=== PATIENT | female | born 1955 | race Caucasian/White ===

== ENCOUNTER 2017-06-04 17:06 | Emergency (ER) | payer MEDICARE, MEDICAID ==
[2017-06-04 17:20] VITALS: BP 203/88
[2017-06-04] MEDS ORDERED: Levalbuterol HCl 1.25 MG/0.5 ML Neb NEB ONE ×2 (17:40→21:15)
--- NOTE | 2017-06-04 17:58 | EDM.PDOC ---
ED HPI GENERAL MEDICAL PROBLEM - General Chief Complaint: Cardiovascular Problem Stated Complaint: SOB Time Seen by Provider: 06/04/17 17:28 Source of Information: Reports: Patient History Limitations: Reports: No Limitations - History of Present Illness INITIAL COMMENTS - FREE TEXT/NARRATIVE: Patient is 62-year-old female who presents ED with cold and flulike symptoms since Saturday. Patient states she wants to walk in clinic and had a chest x- ray obtained revealing pneumonia. Influenza test was negative. She was started on the Z-Avtar as completed this course and does not feel any better. States she feels worse that she initially started. States with any Activity she gets winded. She does have a history of asthma COPD. She utilizes and inhalers and also no treatments while at home. She is not coughing up any sputum. She requires O2 at nighttime. Patient denies any chest pain, dizziness, palpitations , or syncopal episodes. She reports a poor appetite with generalized malaise. Denies any PND or orthopnea. - Related Data Allergies Allergy/AdvReac Type Severity Reaction Status Date / Time metronidazole Allergy Other Verified 11/26/15 14:17 sulfamethoxazole Allergy Other Verified 11/26/15 14:17 trimethoprim Allergy Other Verified 11/26/15 14:17 Home Meds: Home Meds Albuterol [Ventolin HFA] 8 gm INH Q6H PRN 11/26/15 [History] Budesonide/Formoterol [Symbicort 160-4.5 MCG] 0 gm INH BID 11/26/15 [History] Hydrocodone/Acetaminophen [Hydrocodon-Acetaminophen 5-325] 1 tab PO TID PRN [History] Levothyroxine 125 mcg PO ACBREAKFAST 11/26/15 [History] Montelukast [Singulair] 10 mg PO BEDTIME 11/26/15 [History] metFORMIN HCl [Metformin HCl] 1,000 mg PO BID 11/26/15 [History] Amoxicillin/Potassium Clav [Augmentin Xr 1,000-62.5 Tab] 2 each PO BID #28 tab.er.12h 06/04/17 [Rx] Azithromycin 250 mg PO DAILY 06/04/17 [History] Benzonatate [Tessalon Perle] 100 mg PO BID PRN #20 capsule 06/04/17 [Rx] Dulaglutide [Trulicity] 60 units INJECT BEDTIME 06/04/17 [History] Past Medical History HEENT History: Reports: Hard of Hearing Cardiovascular History: Reports: High Cholesterol, Hypertension Respiratory History: Reports: Asthma, COPD, Sleep Apnea Gastrointestinal History: Reports: GERD Musculoskeletal History: Reports: Back Pain, Chronic, Osteoarthritis Other Musculoskeletal History: knee pain Psychiatric History: Reports: Depression Endocrine/Metabolic History: Reports: Diabetes, Type II, Hypothyroidism, Obesity /BMI 30+ - Infectious Disease History Infectious Disease History: Reports: Herpes - Past Surgical History Musculoskeletal Surgical History: Reports: Other (See Below) Social & Family History - Family History Family Medical History: Noncontributory - Tobacco Use Smoking Status *Q: Never Smoker Second Hand Smoke Exposure: No - Caffeine Use Caffeine Use: Reports: Soda, Tea Other Caffeine Use: 1-2 cans daily-coke - Recreational Drug Use Recreational Drug Use: No - Living Situation & Occupation Living situation: Reports: Single, Alone Occupation: Disabled ED ROS GENERAL - Review of Systems Review Of Systems: See Below Constitutional: Reports: Malaise, Decreased Appetite. Denies: Fever, Chills HEENT: Reports: No Symptoms Respiratory: Reports: Shortness of Breath, Cough. Denies: Sputum, Hemoptysis Cardiovascular: Reports: Dyspnea on Exertion. Denies: Chest Pain, Lightheadedness, Palpitations, Syncope GI/Abdominal: Reports: No Symptoms : Reports: No Symptoms Musculoskeletal: Reports: No Symptoms Skin: Reports: No Symptoms Neurological: Reports: No Symptoms Psychiatric: Reports: No Symptoms ED EXAM, GENERAL - Physical Exam Exam: See Below Exam Limited By: No Limitations General Appearance: Alert, WD/WN, Mild Distress Ears: Hearing Grossly Normal Nose: Normal Inspection Throat/Mouth: Normal Voice, No Airway Compromise Neck: Normal Inspection, Supple Respiratory/Chest: No Accessory Muscle Use, Chest Non-Tender, Respiratory Distress, Rhonchi, Wheezing Cardiovascular: Normal Peripheral Pulses, No Murmur, Tachycardia Peripheral Pulses: 3+: Radial (L), Radial (R) GI/Abdominal: Normal Bowel Sounds, Soft, Non-Tender Extremities: Non-Tender, No Pedal Edema, Normal Capillary Refill Neurological: Alert, Oriented, CN II-XII Intact, Normal Cognition, No Motor/ Sensory Deficits Psychiatric: Normal Affect, Normal Mood Skin Exam: Warm, Dry, Intact, Normal Color, No Rash Course - Vital Signs Last Recorded V/S: Last Vital Signs Temp 96.9 F 06/04/17 17:18 Pulse 89 06/04/17 17:18 Resp 19 06/04/17 17:18 BP 203/88 H 06/04/17 17:18 Pulse Ox 95 06/04/17 21:49 - Orders/Labs/Meds Labs: Laboratory Tests 06/04/17 06/04/17 06/04/17 Range/Units 17:56 17:56 17:56 WBC 9.86 (3.98-10.04) K/mm3 RBC 5.11 (3.98-5.22) M/mm3 Hgb 14.4 (11.2-15.7) gm/L Hct 44.8 (34.1-44.9) % MCV 87.7 (79.4-94.8) fl MCH 28.2 (25.6-32.2) pg MCHC 32.1 L (32.2-35.5) g/dl RDW Std Deviation 45.6 (36.4-46.3) fL Plt Count 286 (182-369) K/mm3 MPV 9.8 (9.4-12.3) fl Neutrophils % (Manual) 89 H (40-60) % Band Neutrophils % 0 (0-10) % Lymphocytes % (Manual) 11 L (20-40) % Atypical Lymphs % 0 % Monocytes % (Manual) 0 L (2-10) % Eosinophils % (Manual) 0 L (0.7-5.8) % Basophils % (Manual) 0 L (0.1-1.2) Platelet Estimate Adequate RBC Morph Comment Normal Sodium 138 (136-145) mEq/L Potassium 5.1 (3.5-5.1) mEq/L Chloride 100 (98-107) mEq/L Carbon Dioxide 30 (21-32) mEq/L Anion Gap 13.1 (5-15) BUN 15 (7-18) mg/dL Creatinine 0.9 (0.55-1.02) mg/dL Est Cr Clr Drug Dosing 48.91 mL/min Estimated GFR (MDRD) > 60 (>60) mL/min BUN/Creatinine Ratio 16.7 (14-18) Glucose 251 H (80-115) mg/dL Calcium 8.8 (8.5-10.1) mg/dL Total Bilirubin 0.4 (0.2-1.0) mg/dL AST 39 H (15-37) U/L ALT 36 (14-59) U/L Alkaline Phosphatase 124 H (46-116) U/L Troponin I < 0.017 (0.00-0.056) ng/mL C-Reactive Protein 3.5 H* (<1.0) mg/dL NT-Pro-B Natriuret Pep 102 (0-125) pg/mL Total Protein 7.4 (6.4-8.2) g/dl Albumin 3.6 (3.4-5.0) g/dl Globulin 3.8 gm/dL Albumin/Globulin Ratio 1.0 (1-2) Meds: Medications Discontinued Medications Generic Name Dose Route Start Last Admin Trade Name Freq PRN Reason Stop Dose Admin Amoxicillin/Clavulanate Potassium 2 tab 06/04/17 20:52 06/04/17 21:11 Augmentin 875 Mg/125 Mg PO 06/04/17 20:53 2 tab ONETIME ONE Administration Benzonatate 200 mg 06/04/17 20:50 06/04/17 21:11 Tessalon Perles PO 06/04/17 20:51 200 mg ONETIME ONE Administration Guaifenesin 1,200 mg 06/04/17 20:45 06/04/17 21:11 Mucinex PO 06/04/17 20:46 1,200 mg ONETIME ONE Administration Sodium Chloride 100 mls @ 60 mls/hr 06/04/17 19:30 06/04/17 19:43 Normal Saline IV 60 mls/hr ASDIRECTED JEREMY Administration Iopamidol 50 ml 06/04/17 19:24 06/04/17 19:43 Isovue-370 (76%) IVPUSH 06/04/17 19:25 36 ml ONETIME ONE Administration Iopamidol 100 ml 06/04/17 19:24 06/04/17 19:43 Isovue-370 (76%) IVPUSH 06/04/17 19:25 100 ml ONETIME ONE Administration Levalbuterol HCl 1.25 mg 06/04/17 17:40 06/04/17 17:56 Xopenex NEB 06/04/17 17:41 1.25 mg ONETIME ONE Administration Levalbuterol HCl 1.25 mg 06/04/17 21:15 06/04/17 21:48 Xopenex NEB 06/04/17 21:16 Not Given ONETIME ONE Levalbuterol HCl Confirm 06/04/17 21:52 06/04/17 21:48 Xopenex Administered 06/04/17 21:53 1.25 mg Dose Administration 1.25 mg .ROUTE .[facility] - Re-Assessments/Exams Free Text/Narrative Re-Assessment/Exam: Chest x-ray two-view, CBC, chem 14, pro-BMP, troponin, CRP, and EKG. Patient had expiratory wheezing with rhonchi present both lobes. Ordered Xopenex 1.25 mg neb given 1. Will obtain records from recent chest x-ray conducted this past weekend. X-ray of the chest obtain a [facility] dated June 01, 2017 impression: Hazy infiltrate in the left lower lobe. Findings can be seen with developing pneumonitis. No pleural effusions. Prominent heart size. Degenerative changes thoracic spine. In addition she was tested for influenza which came back negative. Patient is on O2 via nasal cannula satting at 95%. Blood pressure is quite elevated with admission to the ED. This is due to improper blood pressure cuff sizing. The blood pressure was 180/85 heart rate 96, SPO2 93%. This is appropriate for patient's range she is has been started on losartan.. 06/04/17 18:[address] Lane with concerns for pneumonia to the right middle lobe. Suggested CT chest. This has been ordered. 1914 EKG: Sinus rhythm rate of [address] changes. Labs reviewed: CBC did not reveal any concerning findings. Sodium 138, potassium 5.1, creatinine 0.9, glucose 251, troponin less than 0.017, CRP 3.5, is proBNP is 3.5. CT of the chest is pending. CT of the chest impression: Printable densities as noted above most likely representing pneumonia. Less than optimal evaluation for PE but no findings of pulmonary emboli are seen within the main segmental branches. Reassessment, patient states wheezing and cough have improved with the above therapies. I have ordered Tessalon Perles 200mg PO, Augmentin 875mg x2, and mucinex. Will discharge patient home with instructions as documented. No oral predisone ordered. BS 251, patient has uncontrolled diabetes. Departure - Departure Time of Disposition: 20:55 Disposition: Home, Self-Care 01 Condition: Good Clinical Impression: Pneumonia Qualifiers: Pneumonia type: due to unspecified organism Laterality: bilateral Lung location : unspecified part of lung Qualified Code(s): J18.9 - Pneumonia, unspecified organism Prescriptions: Amoxicillin/Potassium Clav [Augmentin Xr 1,000-62.5 Tab] 2 each PO BID #28 tab.er.12h Benzonatate [Tessalon Perle] 100 mg PO BID PRN #20 capsule PRN Reason: Cough Instructions: Shortness of Breath, Adult, [id number], Community-Acquired Pneumonia, Adult, [id number] Referrals: Fred Adhikari MD [Primary Care Provider] - Forms: ED Department Discharge Additional Instructions: Take Tessalon Perles 100 mg 3 times a day as needed for cough. Take Mucinex 600 mg twice a day. Augmentin 2000 mg twice a day for 7 days. Take a over-the- counter probiotic. Push the fluids. Ensure adequate rest. Continue taking your Symbicort inhaler as prescribed. Continue taking the albuterol neb treatments every 4 hours as needed for wheezing and cough. See you Primary care provider the end of this week for reevaluation to ensure resolution. Return to the ED if you develop any new or worsening symptoms.
[2017-06-04] MEDS ORDERED: Iopamidol 755 MG/ML 50 ML Bottle IVPUSH ONE (19:24)
[2017-06-04] MEDS ORDERED: Iopamidol 755 Mg/ML 100 ML Bottle IVPUSH ONE (19:24)
[2017-06-04] MEDS ORDERED: Sodium Chloride 0.9% 100 ML IV SCH (19:30)
--- NOTE | 2017-06-04 20:10 | CT ---
CT chest Technique: Multiple axial sections through the chest were obtained. Intravenous contrast was utilized. Study has been performed as a pulmonary angiogram protocol. Findings: Patient body habitus causes some diminished details of the pulmonary arteries. No filling defects are seen within the main or within the segmental branches but smaller subsegmental pulmonary emboli could be missed. Small portion of the upper abdominal structures are normal. Mild coronary artery calcification is seen. Atherosclerotic calcification noted within the thoracic aorta. Several pretracheal lymph nodes are seen which are within normal limits. No axillary adenopathy is seen. Mild areas of atelectasis believed to be present within the lower lungs. More focal parenchymal density noted within the right upper lung most likely due to pneumonia. Lesser parenchymal density seen within the left lung base possibly due to additional pneumonia. Bone window settings shows scattered degenerative change within the spine. Other incidental findings as noted above. Impression: 1. Parenchymal densities as noted above most likely representing pneumonia. 2. Less than optimal evaluation for pulmonary emboli but no findings of pulmonary emboli are seen within the main or segmental branches. 3. Mild areas of atelectasis seen within both lung bases. Diagnostic code #3
[2017-06-04] MEDS ORDERED: guaiFENesin 600 MG Tab.ER PO ONE (20:45)
[2017-06-04] MEDS ORDERED: Benzonatate 100 MG Cap PO ONE (20:50)
[2017-06-04] MEDS ORDERED: Amoxicillin/Clavulanate K 875-125 MG Tab PO ONE (20:52)
[2017-06-04] MEDS ORDERED: Levalbuterol HCl 1.25 MG/3 ML Neb ONE (21:52)
--- NOTE | 2017-06-05 07:37 | CR ---
Chest: Two views of the chest were obtained. Comparison: Study compared to subsequent chest CT performed on the same day as well as older chest x-ray of 12/05/14. Patchy areas of presumed pneumonia seen on subsequent chest CT are poorly identified on current chest x-ray. Heart size and mediastinum are normal. Bony structures are unremarkable for the patient's age. Impression: 1. Nothing acute is seen on two-view chest x-ray. Subsequent parenchymal densities seen within the lungs felt compatible with pneumonia are not seen on current chest x-ray. Diagnostic code #2
== END 2017-06-04 22:16 | disposition home or self-care (01) ==
LOC: JD.ED 17:06 → SUPCPDRO 17:06 → JD.ED 22:16
DX: J18.9 Pneumonia, unspecified organism (principal); J44.9 Chronic obstructive pulmonary disease, unspecified; E11.9 Type 2 diabetes mellitus without complications; I10 Essential (primary) hypertension; K21.9 Gastro-esophageal reflux disease without esophagitis; E03.9 Hypothyroidism, unspecified; F32.9 Major depressive disorder, single episode, unspecified; E78.00 Pure hypercholesterolemia, unspecified; Z79.84 Long term (current) use of oral hypoglycemic drugs; Z79.899 Other long term (current) drug therapy; Z88.2 Allergy status to sulfonamides; Z88.8 Allergy status to other drugs, medicaments and biological substances
CPT/HCPCS: 36415; 71046; 71275; 80053; 83880; 84484; 85025; 86140; 93005; 94640; 99285; A9270; J7030; J7612; Q9967; 99284

== ENCOUNTER 2021-02-10 16:33 | Emergency (ER) | payer MEDICARE, MEDICAID ==
[2021-02-10 17:13] VITALS: BP 171/57; PULSE 71
[2021-02-10] MEDS ORDERED: Sodium Chloride 0.9% 10 ML Syringe FLUSH PRN (17:20)
[2021-02-10 18:27] LABS: CORONAVIRUS COVID-19 NAA POSITIVE (NEGATIVE)
[2021-02-10] MEDS ORDERED: diphenhydrAMINE 50 MG/ML SDV IVPUSH PRN (19:32)
[2021-02-10] MEDS ORDERED: Famotidine 20 MG/2 ML SDV IVPUSH PRN (19:32)
[2021-02-10] MEDS ORDERED: EPINEPHrine 1 MG/ML SDV IM PRN (19:32)
[2021-02-10] MEDS ORDERED: methylPREDNISolone Sodium Succinate 125 MG/2 ML SDV IVPUSH PRN (19:32)
[2021-02-10] MEDS ORDERED: Sodium Chloride 0.9% 10 ML Syringe FLUSH SCH (19:45)
--- NOTE | 2021-02-10 20:02 | EDM.PDOC ---
ED HPI GENERAL MEDICAL PROBLEM - General Chief Complaint: Respiratory Problem Stated Complaint: COVID+ WEAK COUGH BODYACHES Time Seen by Provider: 02/10/21 17:12 Source of Information: Reports: Patient History Limitations: Reports: No Limitations - History of Present Illness INITIAL COMMENTS - FREE TEXT/NARRATIVE: The patient presents with a cough, shortness of breath, fatigue and diarrhea. This has been going on for a few days. She is concerned the has COVID. She did not get immunized. She has COPD and asthma and is on oxygen. She has not been having to use more oxygen. She has a history of hypertension and high cholesterol. She does not smoke. Onset: Gradual Duration: Day(s): Severity: Moderate Improves with: Reports: None Worsens with: Reports: None Associated Symptoms: Reports: Cough, Fever/Chills, Shortness of Breath. Denies: Chest Pain, Headaches, Nausea/Vomiting - Related Data Allergies Allergy/AdvReac Type Severity Reaction Status Date / Time metronidazole Allergy Other Verified 02/10/21 17:13 sulfamethoxazole Allergy Other Verified 02/10/21 17:13 trimethoprim Allergy Other Verified 02/10/21 17:13 Home Meds: Home Meds Albuterol [Ventolin HFA] 8 gm INH Q6H PRN 11/26/15 [History] Budesonide/Formoterol [Symbicort 160-4.5 MCG] 0 gm INH BID 11/26/15 [History] Hydrocodone/Acetaminophen [HYDROcodone-Acetaminophen 5-325 MG] 1 tab PO TID PRN 11/26/15 [History] Levothyroxine 125 mcg PO ACBREAKFAST 11/26/15 [History] Montelukast [Singulair] 10 mg PO BEDTIME 11/26/15 [History] metFORMIN HCl [Metformin HCl] 1,000 mg PO BID 11/26/15 [History] Amoxicillin/Potassium Clav [Augmentin Xr 1,000-62.5 Tab] 2 each PO BID #28 tab.er.12h 06/04/17 [Rx] Azithromycin 250 mg PO DAILY 06/04/17 [History] Benzonatate [Tessalon Perle] 100 mg PO BID PRN #20 capsule 06/04/17 [Rx] Dulaglutide [Trulicity] 60 units INJECT BEDTIME 06/04/17 [History] dexAMETHasone [Dexamethasone] 6 mg PO DAILY #12 tab 02/10/21 [Rx] Past Medical History HEENT History: Reports: Hard of Hearing Cardiovascular History: Reports: High Cholesterol, Hypertension Respiratory History: Reports: Asthma, COPD, Sleep Apnea Gastrointestinal History: Reports: GERD Musculoskeletal History: Reports: Back Pain, Chronic, Osteoarthritis Other Musculoskeletal History: knee pain Psychiatric History: Reports: Depression Endocrine/Metabolic History: Reports: Diabetes, Type II, Hypothyroidism, Obesity/BMI 30+ - Infectious Disease History Infectious Disease History: Reports: Herpes - Past Surgical History HEENT Surgical History: Reports: Tonsillectomy Musculoskeletal Surgical History: Reports: Other (See Below) Social & Family History - Family History Family Medical History: No Pertinent Family History - Tobacco Use Tobacco Use Status *Q: Never Tobacco User Second Hand Smoke Exposure: No - Caffeine Use Caffeine Use: Reports: Soda Other Caffeine Use: 1-2 cans daily-coke - Recreational Drug Use Recreational Drug Use: No - Living Situation & Occupation Living situation: Reports: Single, Alone Occupation: Disabled ED ROS GENERAL - Review of Systems Review Of Systems: See Below Constitutional: Reports: Fever, Chills, Malaise, Weakness, Fatigue HEENT: Reports: No Symptoms Respiratory: Reports: Shortness of Breath, Cough Cardiovascular: Reports: No Symptoms Endocrine: Reports: No Symptoms GI/Abdominal: Reports: No Symptoms : Reports: No Symptoms Musculoskeletal: Reports: No Symptoms ED EXAM, GENERAL - Physical Exam Exam: See Below Exam Limited By: No Limitations General Appearance: Alert, No Apparent Distress Ears: Normal External Exam Nose: Normal Inspection Head: Atraumatic, Normocephalic Neck: Normal Inspection Respiratory/Chest: No Respiratory Distress, Decreased Breath Sounds Cardiovascular: Regular Rate, Rhythm, No Edema, No Murmur GI/Abdominal: Soft, Non-Tender, No Organomegaly, No Mass Back Exam: Normal Inspection Extremities: Normal Inspection #1 Interpretation EKG Date: 02/10/21 Time: 18:06 Rhythm: NSR Rate (Beats/Min): 67 Crane: Normal P-Wave: Present QRS: Normal ST-T: Normal QT: Normal Course - Vital Signs Last Recorded V/S: Last Vital Signs Temp 97.1 F 02/10/21 17:12 Pulse 71 02/10/21 17:12 Resp 20 02/10/21 17:12 BP 171/57 H 02/10/21 17:12 Pulse Ox 100 02/10/21 17:12 - Orders/Labs/Meds Orders: Active Orders 24 hr Category Date Time Status Cardiac Monitoring [RC] . DIRECTED Care 02/10/21 17:20 Active EKG Documentation Completion [RC] STAT Care 02/10/21 17:21 Active Peripheral IV Care [RC] . DIRECTED Care 02/10/21 17:21 Active Vital Signs [RC] Q15M Care 02/10/21 19:33 Active Chest 1V Frontal [CR] Stat Exams 02/10/21 17:22 Taken EPINEPHrine [Adrenalin] Med 02/10/21 19:32 Active 0.3 mg IM ASDIRECTED PRN Famotidine [Pepcid] Med 02/10/21 19:32 Active 20 mg IVPUSH ASDIRECTED PRN Sodium Chloride 0.9% [Saline Flush] Med 02/10/21 17:20 Active 10 ml FLUSH ASDIRECTED PRN Sodium Chloride 0.9% [Saline Flush] Med 02/10/21 19:45 Active 30 ml FLUSH ASDIRECTED diphenhydrAMINE [Benadryl] Med 02/10/21 19:32 Active 50 mg IVPUSH ASDIRECTED PRN methylPREDNISolone Sod Succ [Solu-MEDROL] Med 02/10/21 19:32 Active 125 mg IVPUSH ASDIRECTED PRN Peripheral IV Insertion Adult [OM.PC] Stat Oth 02/10/21 17:20 Ordered Medication Orders Diphenhydramine HCl (Diphenhydramine 50 Mg/Ml Sdv) 50 mg IVPUSH ASDIRECTED PRN PRN Reason: hypersensitivity reaction Epinephrine HCl (Epinephrine 1 Mg/Ml Sdv) 0.3 mg IM ASDIRECTED PRN PRN Reason: hypersensitivity reaction Famotidine (Famotidine 20 Mg/2 Ml Sdv) 20 mg IVPUSH ASDIRECTED PRN PRN Reason: hypersensitivity reaction Methylprednisolone Sodium Succinate (Methylprednisolone Sodium Succinate 125 Mg/2 Ml Sdv) 125 mg IVPUSH ASDIRECTED PRN PRN Reason: hypersensitivity reaction Sodium Chloride (Sodium Chloride 0.9% 10 Ml Syringe) 10 ml FLUSH ASDIRECTED PRN PRN Reason: Keep Vein Open Last Admin: 02/10/21 17:55 Dose: 10 ml Documented by: ANGELIQUE Sodium Chloride (Sodium Chloride 0.9% 10 Ml Syringe) 30 ml FLUSH ASDIRECTED JEREMY Labs: Laboratory Tests 02/10/21 02/10/21 02/10/21 Range/Units 17:14 17:25 17:25 WBC 5.22 (3.98-10.04) K/mm3 RBC 3.72 L (3.98-5.22) M/mm3 Hgb 11.4 D (11.2-15.7) gm/dl Hct 35.0 (34.1-44.9) % MCV 94.1 D (79.4-94.8) fl MCH 30.6 (25.6-32.2) pg MCHC 32.6 (32.2-35.5) g/dl RDW Std Deviation 46.9 H (36.4-46.3) fL Plt Count 195 D (182-369) K/mm3 MPV 10.0 (9.4-12.3) fl Neut % (Auto) 73.9 H (34.0-71.1) % Lymph % (Auto) 15.3 L (19.3-51.7) % [place] % (Auto) 9.6 (4.7-12.5) % Eos % (Auto) 0.6 L (0.7-5.8) Baso % (Auto) 0.2 (0.1-1.2) % Neut # (Auto) 3.86 (1.56-6.13) K/mm3 Lymph # (Auto) 0.80 L (1.18-3.74) K/mm3 [place] # (Auto) 0.50 H (0.24-0.36) K/mm3 Eos # (Auto) 0.03 L (0.04-0.36) K/mm3 Baso # (Auto) 0.01 (0.01-0.08) K/mm3 D-Dimer, Quantitative 0.64 H (0.19-0.50) mg/L Sodium (136-145) mEq/L Potassium (3.5-5.1) mEq/L Chloride (98-107) mEq/L Carbon Dioxide (21-32) mEq/L Anion Gap (5-15) BUN (7-18) mg/dL Creatinine (0.55-1.02) mg/dL Est Cr Clr Drug Dosing mL/min Estimated GFR (MDRD) (>60) mL/min BUN/Creatinine Ratio (14-18) Glucose (70-99) mg/dL Lactic Acid (0.4-2.0) mmol/L Calcium (8.5-10.1) mg/dL Total Bilirubin (0.2-1.0) mg/dL AST (15-37) U/L ALT (14-59) U/L Alkaline Phosphatase (46-116) U/L Troponin I (0.00-0.056) ng/mL C-Reactive Protein (<1.0) mg/dL Total Protein (6.4-8.2) g/dl Albumin (3.4-5.0) g/dl Globulin gm/dL Albumin/Globulin Ratio (1-2) Influenza Type A RNA Negative (NEGATIVE) Influenza Type B RNA Negative (NEGATIVE) SARS-CoV-2 RNA (STEPH) Positive H (NEGATIVE) 02/10/21 02/10/21 Range/Units 17:25 18:10 WBC (3.98-10.04) K/mm3 RBC (3.98-5.22) M/mm3 Hgb (11.2-15.7) gm/dl Hct (34.1-44.9) % MCV (79.4-94.8) fl MCH (25.6-32.2) pg MCHC (32.2-35.5) g/dl RDW Std Deviation (36.4-46.3) fL Plt Count (182-369) K/mm3 MPV (9.4-12.3) fl Neut % (Auto) (34.0-71.1) % Lymph % (Auto) (19.3-51.7) % [place] % (Auto) (4.7-12.5) % Eos % (Auto) (0.7-5.8) Baso % (Auto) (0.1-1.2) % Neut # (Auto) (1.56-6.13) K/mm3 Lymph # (Auto) (1.18-3.74) K/mm3 [place] # (Auto) (0.24-0.36) K/mm3 Eos # (Auto) (0.04-0.36) K/mm3 Baso # (Auto) (0.01-0.08) K/mm3 D-Dimer, Quantitative (0.19-0.50) mg/L Sodium 136 (136-145) mEq/L Potassium 4.5 (3.5-5.1) mEq/L Chloride 100 (98-107) mEq/L Carbon Dioxide 24 (21-32) mEq/L Anion Gap 16.5 H (5-15) BUN 42 H D (7-18) mg/dL Creatinine 1.7 H (0.55-1.02) mg/dL Est Cr Clr Drug Dosing 36.87 mL/min Estimated GFR (MDRD) 30 (>60) mL/min BUN/Creatinine Ratio 24.7 H (14-18) Glucose 51 L* (70-99) mg/dL Lactic Acid 0.3 L (0.4-2.0) mmol/L Calcium 8.5 (8.5-10.1) mg/dL Total Bilirubin 0.3 (0.2-1.0) mg/dL AST 36 (15-37) U/L ALT 27 (14-59) U/L Alkaline Phosphatase 82 (46-116) U/L Troponin I < 0.017 (0.00-0.056) ng/mL C-Reactive Protein 8.5 H* (<1.0) mg/dL Total Protein 7.3 (6.4-8.2) g/dl Albumin 3.5 (3.4-5.0) g/dl Globulin 3.8 gm/dL Albumin/Globulin Ratio 0.9 L (1-2) Influenza Type A RNA (NEGATIVE) Influenza Type B RNA (NEGATIVE) SARS-CoV-2 RNA (STEPH) (NEGATIVE) Meds: Medications Generic Name Dose Route Start Last Admin Trade Name Freq PRN Reason Stop Dose Admin Diphenhydramine HCl 50 mg 02/10/21 19:32 Diphenhydramine 50 Mg/Ml Sdv IVPUSH ASDIRECTED PRN hypersensitivity reaction Epinephrine HCl 0.3 mg 02/10/21 19:32 Epinephrine 1 Mg/Ml Sdv IM ASDIRECTED PRN hypersensitivity reaction Famotidine 20 mg 02/10/21 19:32 Famotidine 20 Mg/2 Ml Sdv IVPUSH ASDIRECTED PRN hypersensitivity reaction Methylprednisolone Sodium Succinate 125 mg 02/10/21 19:32 Methylprednisolone Sodium Succinate 125 Mg/2 Ml Sdv IVPUSH ASDIRECTED PRN hypersensitivity reaction Sodium Chloride 10 ml 02/10/21 17:20 02/10/21 17:55 Sodium Chloride 0.9% 10 Ml Syringe FLUSH 10 ml ASDIRECTED PRN Administration Keep Vein Open Sodium Chloride 30 ml 02/10/21 19:45 Sodium Chloride 0.9% 10 Ml Syringe FLUSH ASDIRECTED JEREMY Discontinued Medications Generic Name Dose Route Start Last Admin Trade Name Natasha PRN Reason Stop Dose Admin CASIRIVIMAB/IMDEVIMAB 10 ml/ 110 mls @ 220 mls/hr 02/10/21 19:32 Sodium Chloride IV 02/10/21 20:01 ONETIME ONE - Re-Assessments/Exams Free Text/Narrative Re-Assessment/Exam: 02/10/21 19:59 I ordered oxygen, CXR, EKG, labs and COVID test. Her CBC looks good. Her D- dimer was elevated at 0.64. Her anion gap was slightly elevated at 16.5. Her creatinine is elevated at 1.7. Her glucose was low at 51. I gave her some sugar. Her lactic acid was low at 0.3. Her troponin was negative. Her CRP was elevated at 8.5. Her COVID was positive. I spoke with the patient to provide information about REGEN-COV treatment. I offered them the Patient and Caregiver EUA REGEN-COV Fact Sheet to read and review. I stated the drug has been approved by an emergency use authorization (EUA} process and has not fully been FDA reviewed or approved. The patient meets the EUA requirements. I discussed there are other potential treatment options that are currently not FDA approved to treat COVID 19. Offered opportunity to ask questions and all questions were answered. The patient voiced understanding and agreed to proceed with treatment. The patient wanted the regeneron. I have ordered that. I will also get her on some dexamethasone. 02/10/21 20:02 Her CXR shows slight COVID pneumonia. Departure - Departure Time of Disposition: 20:05 Disposition: Home, Self-Care 01 Condition: Good Clinical Impression: Pneumonia due to COVID-19 virus - Discharge Information *PRESCRIPTION DRUG MONITORING PROGRAM REVIEWED*: Not Applicable *COPY OF PRESCRIPTION DRUG MONITORING REPORT IN PATIENT GELA: Not Applicable Prescriptions: dexAMETHasone [Dexamethasone] 6 mg PO DAILY #12 tab Referrals: Fred Adhikari MD [Primary Care Provider] - 1 Week Additional Instructions: Take the dexamethasone 1 1/2 pill or 6mg daily until gone. The dexamethasone is a steroid and it will raise your blood sugar. They should go back down after taking the dexamethasone. Use your inhalers. Wear the oxygen at all times. Please return if you feel worse. Sepsis Event Note (ED) - Focused Exam Vital Signs: Vital Signs Temp Pulse Resp BP Pulse Ox 02/10/21 17:12 97.1 F 71 20 171/57 H 100 - My Orders Last 24 Hours: My Active Orders 02/10/21 17:20 Cardiac Monitoring [RC] . DIRECTED Sodium Chloride 0.9% [Saline Flush] 10 ml FLUSH ASDIRECTED PRN Peripheral IV Insertion Adult [OM.PC] Stat 02/10/21 17:21 EKG Documentation Completion [RC] STAT Peripheral IV Care [RC] . DIRECTED 02/10/21 17:22 Chest 1V Frontal [CR] Stat 02/10/21 19:32 EPINEPHrine [Adrenalin] 0.3 mg IM ASDIRECTED PRN Famotidine [Pepcid] 20 mg IVPUSH ASDIRECTED PRN diphenhydrAMINE [Benadryl] 50 mg IVPUSH ASDIRECTED PRN methylPREDNISolone Sod Succ [Solu-MEDROL] 125 mg IVPUSH ASDIRECTED PRN 02/10/21 19:33 Vital Signs [RC] Q15M 02/10/21 19:45 Sodium Chloride 0.9% [Saline Flush] 30 ml FLUSH ASDIRECTED - Assessment/Plan Last 24 Hours: My Active Orders 02/10/21 17:20 Cardiac Monitoring [RC] . DIRECTED Sodium Chloride 0.9% [Saline Flush] 10 ml FLUSH ASDIRECTED PRN Peripheral IV Insertion Adult [OM.PC] Stat 02/10/21 17:21 EKG Documentation Completion [RC] STAT Peripheral IV Care [RC] . DIRECTED 02/10/21 17:22 Chest 1V Frontal [CR] Stat 02/10/21 19:32 EPINEPHrine [Adrenalin] 0.3 mg IM ASDIRECTED PRN Famotidine [Pepcid] 20 mg IVPUSH ASDIRECTED PRN diphenhydrAMINE [Benadryl] 50 mg IVPUSH ASDIRECTED PRN methylPREDNISolone Sod Succ [Solu-MEDROL] 125 mg IVPUSH ASDIRECTED PRN 02/10/21 19:33 Vital Signs [RC] Q15M 02/10/21 19:45 Sodium Chloride 0.9% [Saline Flush] 30 ml FLUSH ASDIRECTED
[2021-02-10] MEDS ORDERED: Dexamethasone 4 MG Tab PO ONE (20:04)
[2021-02-10] MEDS ORDERED: Acetaminophen 325 MG Tab PO ONE (21:06)
--- NOTE | 2021-02-11 12:25 | CR ---
Chest: Portable view of the chest was obtained. Comparison: Prior chest x-ray of 06/04/17. Heart size and mediastinum are within normal limits. Lung markings are slightly increased raising the possibility of bronchitis if patient has correlating symptoms. Lungs otherwise are clear. Bony structures show nothing acute. Impression: 1. Findings are suspicious for bronchitis if patient has correlating history. 2. Portable chest x-ray is otherwise unremarkable. Diagnostic code #3
== END 2021-02-10 22:32 | disposition home or self-care (01) ==
LOC: JD.ED 16:33
DX: U07.1 COVID-19 (principal); J12.82 Pneumonia due to coronavirus disease 2019; E78.00 Pure hypercholesterolemia, unspecified; I10 Essential (primary) hypertension; J44.9 Chronic obstructive pulmonary disease, unspecified; K21.9 Gastro-esophageal reflux disease without esophagitis; E11.9 Type 2 diabetes mellitus without complications; E03.9 Hypothyroidism, unspecified; E66.9 Obesity, unspecified; Z68.41 Body mass index [BMI] 40.0-44.9, adult; Z79.84 Long term (current) use of oral hypoglycemic drugs; Z88.1 Allergy status to other antibiotic agents; Z88.8 Allergy status to other drugs, medicaments and biological substances; Z79.899 Other long term (current) drug therapy
CPT/HCPCS: 0240U; 36415; 71045; 80053; 83605; 84484; 85025; 85379; 86140; 99285; A9270; J8540; M0243; Q0243

== ENCOUNTER 2021-07-18 14:49 | Emergency (ER) | payer MEDICARE, MEDICAID ==
[2021-07-18 15:07] VITALS: BP 171/77; PULSE 66
[2021-07-18] MEDS ORDERED: Sodium Chloride 0.9% 10 ML Syringe FLUSH PRN (15:47)
[2021-07-18] MEDS ORDERED: Sodium Chloride 0.9% 500 ML IV ONE (17:56)
== END 2021-07-18 20:30 | disposition home or self-care (01) ==
LOC: JD.ED 14:49
DX: D25.9 Leiomyoma of uterus, unspecified (principal); K21.9 Gastro-esophageal reflux disease without esophagitis; J44.9 Chronic obstructive pulmonary disease, unspecified; E11.9 Type 2 diabetes mellitus without complications; E03.9 Hypothyroidism, unspecified; E66.9 Obesity, unspecified; Z88.1 Allergy status to other antibiotic agents; Z88.8 Allergy status to other drugs, medicaments and biological substances; Z79.899 Other long term (current) drug therapy; Z68.43 Body mass index [BMI] 50.0-59.9, adult
CPT/HCPCS: 36415; 74019; 74177; 80053; 81003; 83735; 85025; 86140; 99284; J3490; J7030

== ENCOUNTER 2022-11-01 23:11 | Emergency (ER) | payer MEDICARE, MEDICAID ==
[2022-11-01 23:33] VITALS: BP 194/59; PULSE 76
[2022-11-02 00:41] LABS: CORONAVIRUS COVID-19 NAA NEGATIVE (NEGATIVE); INFLUENZA A NAA NEGATIVE (NEGATIVE)
[2022-11-02 01:02] LABS: HEMATOCRIT 33.6 % (34.1-44.9); HEMOGLOBIN 11.7 gm/dl (11.2-15.7); MEAN CORPUSCULAR HEMOGLOBIN 30.2 pg (25.6-32.2); MEAN CORPUSCULAR HGB CONC 34.8 g/dl (32.2-35.5); MEAN CORPUSCULAR VOLUME 86.6 fl (79.4-94.8); MEAN PLATELET VOLUME 10.3 fl (9.4-12.3); PLATELET COUNT,PLT 288 K/mm3 (182-369); RED BLOOD CELL COUNT 3.88 M/mm3 (3.98-5.22); WHITE BLOOD CELL COUNT,WBC 12.59 K/mm3 (3.98-10.04)
[2022-11-02 01:12] LABS: BASE EXCESS ARTERIAL 0.4 (-2-2.0); O2 SATURATION ARTERIAL 83.5 % (96.0-97.0); PCO2 ARTERIAL 43.1 mmHg (35.0-45.0)
[2022-11-02 01:17] LABS: INR 0.93
[2022-11-02 01:19] LABS: PTT,PARTIAL THROMBOPLSTIN TIME 30.1 SECONDS (21.7-31.4)
[2022-11-02 01:24] LABS: LACTIC ACID 1.8 mmol/L (0.4-2.0)
[2022-11-02 01:29] LABS: BAND PERCENT MAN 0 % (0-10); BASOPHILS PERCENT MAN 1 (0.1-1.2); EOSINOPHILS PERCENT MAN 1 % (0.7-5.8); LYMPHOCYTES % ATYPICAL MANUAL 0 %; LYMPHOCYTES PERCENT MAN 10 % (20-40); MONOCYTES PERCENT MAN 10 % (2-10); PLATELET COUNT ESTIMATE ADEQUATE
[2022-11-02 01:30] LABS: A/G RATIO 1.1 (1-2); ALBUMIN 3.7 g/dl (3.4-5.0); BILIRUBIN TOTAL 0.4 mg/dL (0.2-1.0); CALCIUM 8.9 mg/dL (8.5-10.1); CREATININE 1.5 mg/dL (0.55-1.02); D-DIMER QUANTITATIVE 0.53 mg/L (0.19-0.50); EST CRCL DRUG DOSING (CG) 28.78 mL/min; POTASSIUM,K 4.4 mEq/L (3.5-5.1); PROTEIN TOTAL,TP 7.2 g/dl (6.4-8.2)
[2022-11-02 01:36] LABS: ANION GAP 13.4 (5-15)
[2022-11-02 02:08] LABS: APPEARANCE,URINE CLEAR (Clear); BILIRUBIN,URINE NEGATIVE (Negative); COLOR,URINE LIGHT YELLOW (Yellow); GLUCOSE,URINE NEGATIVE (Negative); KETONES,URINE NEGATIVE (Negative); LEUKOCYTE ESTERASE,URINE NEGATIVE (Negative); NITRITE,URINE NEGATIVE (Negative); OCCULT BLOOD,URINE NEGATIVE (Negative); PH,URINE 6.5 (5.0-8.0); PROTEIN,URINE NEGATIVE (Negative); UROBILINOGEN,URINE 0.2 (0.2-1.0)
[2022-11-02 02:49] LABS: BACTERIA,URINE FEW /hpf (FEW); MUCUS,URINE NOT SEEN /hpf (FEW); RBC,URINE NOT SEEN /hpf (0-5); WBC,URINE 0-5 /hpf (0-5)
== END 2022-11-02 03:05 | disposition home or self-care (01) ==
LOC: JD.ED 23:11
DX: M54.9 Dorsalgia, unspecified (principal); G89.29 Other chronic pain; R53.83 Other fatigue; I11.0 Hypertensive heart disease with heart failure; I50.9 Heart failure, unspecified; E78.00 Pure hypercholesterolemia, unspecified; K21.9 Gastro-esophageal reflux disease without esophagitis; E11.9 Type 2 diabetes mellitus without complications; E03.9 Hypothyroidism, unspecified; E66.9 Obesity, unspecified; Z79.51 Long term (current) use of inhaled steroids; Z88.8 Allergy status to other drugs, medicaments and biological substances; Z88.1 Allergy status to other antibiotic agents; Z79.899 Other long term (current) drug therapy; Z79.84 Long term (current) use of oral hypoglycemic drugs; Z20.822 Contact with and (suspected) exposure to COVID-19
CPT/HCPCS: 0240U; 36415; 36600; 71046; 80053; 81001; 82803; 83605; 83880; 84484; 85007; 85027; 85379; 85610; 85730; 87040; 93005; 99285; 93010; 99284

== ENCOUNTER 2023-03-22 15:03 | Inpatient (IN) | payer MEDICARE, MEDICAID ==
[2023-03-22 17:34] LABS: BASOPHILS PERCENT AUTO 0.3 % (0.0-1.0); EOSINOPHILS ABSOLUTE AUTO 0.1 K/mm3 (0.0-0.4); EOSINOPHILS PERCENT AUTO 0.9 % (0.0-6.0); HEMATOCRIT 29.2 % (37.0-47.0); HEMOGLOBIN 10.4 gm/dl (12.0-16.0); IMMATURE GRAN ABSOLUTE AUTO 0.06 K/mm3 (0.00-0.05); IMMATURE GRAN PERCENT AUTO 0.6 % (0.0-0.4); LYMPHOCYTES ABSOLUTE AUTO 0.8 K/mm3 (1.0-4.8); LYMPHOCYTES PERCENT AUTO 8.1 % (24.0-44.0); MEAN CORPUSCULAR HEMOGLOBIN 30.4 pg (28.0-32.0); MEAN CORPUSCULAR HGB CONC 35.6 g/dl (32.0-36.0); MEAN CORPUSCULAR VOLUME 85.4 fl (83.0-99.0); MEAN PLATELET VOLUME 9.8 fl (9.4-12.3); MONOCYTES ABSOLUTE AUTO 0.9 K/mm3 (0.0-0.8); MONOCYTES PERCENT AUTO 9.7 % (0.0-8.0); NEUTROPHILS ABSOLUTE AUTO 7.6 K/mm3 (1.8-7.7); NEUTROPHILS PERCENT AUTO 80.4 % (41.0-71.0); PLATELET COUNT,PLT 279 K/mm3 (150-400); RED BLOOD CELL COUNT 3.42 M/mm3 (4.10-5.30); WHITE BLOOD CELL COUNT,WBC 9.41 K/mm3 (3.9-11.3)
[2023-03-22 17:57] LABS: ALBUMIN 3.4 g/dl (3.4-5.0); ANION GAP 12.7 (5-15); BILIRUBIN TOTAL 0.5 mg/dL (0.2-1.0); BUN/CREATININE RATIO 21.6 (14-18); CALCIUM 9.1 mg/dL (8.5-10.1); CREATININE 1.9 mg/dL (0.55-1.02); EST CRCL DRUG DOSING (CG) 22.72 mL/min; MAGNESIUM 1.5 mg/dL (1.8-2.4); POTASSIUM,K 4.7 mEq/L (3.5-5.1); PROTEIN TOTAL,TP 6.9 g/dl (6.4-8.2)
[2023-03-22] MEDS: Sodium Chloride 0.9% 1,000 ML IV SCH (18:40)
[2023-03-22] MEDS ORDERED: Ondansetron 4 MG Tab.DIS PO PRN (20:09)
[2023-03-22] MEDS ORDERED: Ondansetron 4 MG/2 ML SDV IV PRN (20:09)
[2023-03-22] MEDS ORDERED: 50% Dextrose in Water 50 ML Syringe IVPUSH PRN (20:12)
[2023-03-22] MEDS ORDERED: Glucagon,Human Recombinant 1 MG Vial IM PRN (20:12)
[2023-03-22 20:43] LABS: ANION GAP 13.5 (5-15); BUN/CREATININE RATIO 21.1 (14-18); CALCIUM 9.3 mg/dL (8.5-10.1); CREATININE 1.9 mg/dL (0.55-1.02); EST CRCL DRUG DOSING (CG) 22.72 mL/min; POTASSIUM,K 4.5 mEq/L (3.5-5.1)
[2023-03-22] MEDS: Insulin Lispro 100 Unit/ML 3 ML KwikPen SUBCUT SCH (22:00)
[2023-03-22 22:34] LABS: ANION GAP 13.3 (5-15); BUN/CREATININE RATIO 21.1 (14-18); CALCIUM 8.9 mg/dL (8.5-10.1); CREATININE 1.9 mg/dL (0.55-1.02); EST CRCL DRUG DOSING (CG) 22.72 mL/min; POTASSIUM,K 4.3 mEq/L (3.5-5.1)
[2023-03-22] MEDS: Heparin Sodium 5,000 Units/ML Vial SUBCUT SCH (22:38)
[2023-03-23 02:27] LABS: ANION GAP 11.6 (5-15); BUN/CREATININE RATIO 21.6 (14-18); CALCIUM 9.1 mg/dL (8.5-10.1); CREATININE 1.9 mg/dL (0.55-1.02); EST CRCL DRUG DOSING (CG) 22.72 mL/min; POTASSIUM,K 4.6 mEq/L (3.5-5.1)
[2023-03-23] MEDS: Heparin Sodium 5,000 Units/ML Vial SUBCUT SCH ×3 (05:58→20:34)
[2023-03-23 06:06] LABS: BASOPHILS PERCENT AUTO 0.3 % (0.0-1.0); EOSINOPHILS ABSOLUTE AUTO 0.1 K/mm3 (0.0-0.4); EOSINOPHILS PERCENT AUTO 1.5 % (0.0-6.0); HEMOGLOBIN 9.6 gm/dl (12.0-16.0); IMMATURE GRAN ABSOLUTE AUTO 0.06 K/mm3 (0.00-0.05); IMMATURE GRAN PERCENT AUTO 0.7 % (0.0-0.4); LYMPHOCYTES ABSOLUTE AUTO 1.6 K/mm3 (1.0-4.8); LYMPHOCYTES PERCENT AUTO 17.7 % (24.0-44.0); MEAN CORPUSCULAR HEMOGLOBIN 30.6 pg (28.0-32.0); MEAN CORPUSCULAR HGB CONC 35.6 g/dl (32.0-36.0); MEAN PLATELET VOLUME 9.9 fl (9.4-12.3); MONOCYTES ABSOLUTE AUTO 1.1 K/mm3 (0.0-0.8); MONOCYTES PERCENT AUTO 12.3 % (0.0-8.0); NEUTROPHILS ABSOLUTE AUTO 6.2 K/mm3 (1.8-7.7); NEUTROPHILS PERCENT AUTO 67.5 % (41.0-71.0); PLATELET COUNT,PLT 265 K/mm3 (150-400); RED BLOOD CELL COUNT 3.14 M/mm3 (4.10-5.30); WHITE BLOOD CELL COUNT,WBC 9.14 K/mm3 (3.9-11.3)
[2023-03-23 06:26] LABS: ANION GAP 11.3 (5-15); BUN/CREATININE RATIO 21.1 (14-18); CREATININE 1.9 mg/dL (0.55-1.02); EST CRCL DRUG DOSING (CG) 22.72 mL/min; POTASSIUM,K 4.3 mEq/L (3.5-5.1)
[2023-03-23] MEDS: Insulin Lispro 100 Unit/ML 3 ML KwikPen SUBCUT SCH ×4 (07:59→21:55)
[2023-03-23] MEDS ORDERED: Calcium Carbonate 500 MG Tab.Chew PO PRN (09:17)
[2023-03-23] MEDS: Sodium Chloride 0.9% 1,000 ML IV SCH (09:33)
[2023-03-23] MEDS ORDERED: Fluticasone NASAL Spray 16 GM Bottle NASBOTH PRN (10:27)
[2023-03-23] MEDS ORDERED: Acetaminophen/HYDROcodone 325-5 MG Tab PO PRN (10:27)
[2023-03-23] MEDS ORDERED: Albuterol 0.5% 2.5 MG/0.5 ML Neb Soln INH PRN (10:27)
[2023-03-23 10:29] LABS: ANION GAP 9.1 (5-15); BUN/CREATININE RATIO 21.7 (14-18); CREATININE 1.8 mg/dL (0.55-1.02); EST CRCL DRUG DOSING (CG) 23.99 mL/min; POTASSIUM,K 4.1 mEq/L (3.5-5.1)
[2023-03-23] MEDS ORDERED: Albuterol 0.083% 2.5 MG/3 ML Neb Soln INH PRN (10:47)
[2023-03-23] MEDS: Polyethylene Glycol 3350 Powder 17 GM Packet PO PRN (14:38)
[2023-03-23] MEDS: Pregabalin 25 MG Cap PO SCH ×2 (14:38→20:16)
[2023-03-23] MEDS: Acetaminophen 325 MG Tab PO PRN (20:16)
[2023-03-23] MEDS: Formoterol/Mometasone 200-5 MCG 8.8 GM Inhaler IH SCH (20:53)
[2023-03-23] MEDS: Diclofenac Sodium 1% Gel 100 GM Tube TOP SCH (21:32)
[2023-03-24] MEDS: LORazepam 0.5 MG Tab PO PRN (00:01)
[2023-03-24] MEDS: Heparin Sodium 5,000 Units/ML Vial SUBCUT SCH ×3 (04:31→20:14)
[2023-03-24 06:07] LABS: BASOPHILS PERCENT AUTO 0.3 % (0.0-1.0); EOSINOPHILS ABSOLUTE AUTO 0.2 K/mm3 (0.0-0.4); EOSINOPHILS PERCENT AUTO 1.6 % (0.0-6.0); HEMATOCRIT 25.1 % (37.0-47.0); HEMOGLOBIN 8.9 gm/dl (12.0-16.0); IMMATURE GRAN ABSOLUTE AUTO 0.07 K/mm3 (0.00-0.05); IMMATURE GRAN PERCENT AUTO 0.8 % (0.0-0.4); LYMPHOCYTES ABSOLUTE AUTO 1.9 K/mm3 (1.0-4.8); LYMPHOCYTES PERCENT AUTO 20.4 % (24.0-44.0); MEAN CORPUSCULAR HEMOGLOBIN 30.8 pg (28.0-32.0); MEAN CORPUSCULAR HGB CONC 35.5 g/dl (32.0-36.0); MEAN CORPUSCULAR VOLUME 86.9 fl (83.0-99.0); MEAN PLATELET VOLUME 9.9 fl (9.4-12.3); MONOCYTES ABSOLUTE AUTO 1.1 K/mm3 (0.0-0.8); NEUTROPHILS PERCENT AUTO 64.9 % (41.0-71.0); PLATELET COUNT,PLT 252 K/mm3 (150-400); RED BLOOD CELL COUNT 2.89 M/mm3 (4.10-5.30); WHITE BLOOD CELL COUNT,WBC 9.25 K/mm3 (3.9-11.3)
[2023-03-24] MEDS: Levothyroxine 112 MCG Tab PO SCH (06:20)
[2023-03-24 06:27] LABS: ANION GAP 11.2 (5-15); BUN/CREATININE RATIO 20.9 (14-18); CALCIUM 8.7 mg/dL (8.5-10.1); CREATININE 2.2 mg/dL (0.55-1.02); EST CRCL DRUG DOSING (CG) 19.63 mL/min; MAGNESIUM 1.7 mg/dL (1.8-2.4); POTASSIUM,K 4.2 mEq/L (3.5-5.1)
[2023-03-24] MEDS: Sodium Chloride 0.9% 1,000 ML IV SCH (06:45)
[2023-03-24] MEDS: Insulin Lispro 100 Unit/ML 3 ML KwikPen SUBCUT SCH ×4 (07:14→20:35)
[2023-03-24] MEDS ORDERED: Magnesium Sulfate/Water 2 GM/50 ML BAG IV ONE (07:37)
[2023-03-24] MEDS: Losartan 100 MG Tab PO SCH (08:10)
[2023-03-24] MEDS: Pregabalin 25 MG Cap PO SCH ×3 (08:10→20:15)
[2023-03-24] MEDS: Spironolactone 25 MG Tab PO SCH (08:10)
[2023-03-24] MEDS: Sodium Chloride 1 GM Tab PO SCH (08:10)
[2023-03-24] MEDS: Cholecalciferol (Vitamin D3) 25 MCG Tab PO SCH (08:11)
[2023-03-24] MEDS: Pantoprazole 40 MG Tab.CR PO SCH (08:11)
[2023-03-24] MEDS: Pravastatin 20 MG Tab PO SCH (08:11)
[2023-03-24] MEDS: Diclofenac Sodium 1% Gel 100 GM Tube TOP SCH ×2 (08:16→20:15)
[2023-03-24] MEDS: Polyethylene Glycol 3350 Powder 17 GM Packet PO PRN (08:25)
[2023-03-24] MEDS: Formoterol/Mometasone 200-5 MCG 8.8 GM Inhaler IH SCH ×2 (08:36→20:45)
[2023-03-24 18:06] LABS: ANION GAP 13.4 (5-15); BUN/CREATININE RATIO 21.5 (14-18); CALCIUM 9.2 mg/dL (8.5-10.1); EST CRCL DRUG DOSING (CG) 21.59 mL/min; POTASSIUM,K 5.4 mEq/L (3.5-5.1)
[2023-03-24] MEDS: Docusate Sodium 100 MG Cap PO PRN (20:15)
[2023-03-24 22:06] VITALS: PULSE 64
[2023-03-24] MEDS: Acetaminophen 325 MG Tab PO PRN (22:26)
[2023-03-25] MEDS: LORazepam 0.5 MG Tab PO PRN (02:40)
[2023-03-25] MEDS: Sodium Chloride 0.9% 1,000 ML IV SCH (02:53)
[2023-03-25] MEDS: Heparin Sodium 5,000 Units/ML Vial SUBCUT SCH ×2 (04:30→12:43)
[2023-03-25] MEDS: Levothyroxine 112 MCG Tab PO SCH (06:24)
[2023-03-25] MEDS: Insulin Lispro 100 Unit/ML 3 ML KwikPen SUBCUT SCH ×2 (06:35→12:40)
[2023-03-25 06:39] LABS: BASOPHILS PERCENT AUTO 0.2 % (0.0-1.0); EOSINOPHILS ABSOLUTE AUTO 0.1 K/mm3 (0.0-0.4); EOSINOPHILS PERCENT AUTO 1.3 % (0.0-6.0); HEMATOCRIT 26.2 % (37.0-47.0); HEMOGLOBIN 9.2 gm/dl (12.0-16.0); IMMATURE GRAN ABSOLUTE AUTO 0.11 K/mm3 (0.00-0.05); IMMATURE GRAN PERCENT AUTO 1.2 % (0.0-0.4); LYMPHOCYTES ABSOLUTE AUTO 1.9 K/mm3 (1.0-4.8); LYMPHOCYTES PERCENT AUTO 19.7 % (24.0-44.0); MEAN CORPUSCULAR HEMOGLOBIN 30.8 pg (28.0-32.0); MEAN CORPUSCULAR HGB CONC 35.1 g/dl (32.0-36.0); MEAN CORPUSCULAR VOLUME 87.6 fl (83.0-99.0); MEAN PLATELET VOLUME 9.7 fl (9.4-12.3); MONOCYTES PERCENT AUTO 10.8 % (0.0-8.0); NEUTROPHILS ABSOLUTE AUTO 6.3 K/mm3 (1.8-7.7); NEUTROPHILS PERCENT AUTO 66.8 % (41.0-71.0); PLATELET COUNT,PLT 270 K/mm3 (150-400); RED BLOOD CELL COUNT 2.99 M/mm3 (4.10-5.30); WHITE BLOOD CELL COUNT,WBC 9.38 K/mm3 (3.9-11.3)
[2023-03-25 07:00] LABS: ANION GAP 9.8 (5-15); BILIRUBIN TOTAL 0.3 mg/dL (0.2-1.0); BUN/CREATININE RATIO 22.5 (14-18); EST CRCL DRUG DOSING (CG) 21.59 mL/min; POTASSIUM,K 4.8 mEq/L (3.5-5.1); PROTEIN TOTAL,TP 5.9 g/dl (6.4-8.2)
[2023-03-25] MEDS: Pravastatin 20 MG Tab PO SCH (08:25)
[2023-03-25] MEDS: Pantoprazole 40 MG Tab.CR PO SCH (08:25)
[2023-03-25] MEDS: Spironolactone 25 MG Tab PO SCH (08:26)
[2023-03-25] MEDS: Sodium Chloride 1 GM Tab PO SCH (08:26)
[2023-03-25] MEDS: Cholecalciferol (Vitamin D3) 25 MCG Tab PO SCH (08:27)
[2023-03-25] MEDS: Losartan 100 MG Tab PO SCH (08:27)
[2023-03-25] MEDS: Pregabalin 25 MG Cap PO SCH (08:28)
[2023-03-25] MEDS: Diclofenac Sodium 1% Gel 100 GM Tube TOP SCH (08:31)
[2023-03-25] MEDS: Formoterol/Mometasone 200-5 MCG 8.8 GM Inhaler IH SCH (09:06)
[2023-03-25] MEDS: Docusate Sodium 100 MG Cap PO PRN (09:38)
[2023-03-25] MEDS: Polyethylene Glycol 3350 Powder 17 GM Packet PO PRN (09:38)
[2023-03-25 15:05] VITALS: BP 116/60
== END 2023-03-25 16:21 | disposition home or self-care (01) | DRG 641 ==
LOC: JD.ED 15:03 → JD.MS 20:09 → JD.ICU 21:20
PROVIDERS: ADMIT Hospitalist; ATTEND Internal Medicine
DX: E87.1 Hypo-osmolality and hyponatremia (principal); I11.0 Hypertensive heart disease with heart failure; I13.0 Hypertensive heart and chronic kidney disease with heart failure and stage 1 through stage 4 chronic kidney disease, or unspecified chronic kidney disease; Z68.44 Body mass index [BMI] 60.0-69.9, adult; N18.4 Chronic kidney disease, stage 4 (severe); J96.10 Chronic respiratory failure, unspecified whether with hypoxia or hypercapnia; E66.01 Morbid (severe) obesity due to excess calories; E66.9 Obesity, unspecified; G47.33 Obstructive sleep apnea (adult) (pediatric); E83.42 Hypomagnesemia; E87.8 Other disorders of electrolyte and fluid balance, not elsewhere classified; H91.90 Unspecified hearing loss, unspecified ear; Z86.16 Personal history of COVID-19; Z79.4 Long term (current) use of insulin; I50.9 Heart failure, unspecified; E78.00 Pure hypercholesterolemia, unspecified; K21.9 Gastro-esophageal reflux disease without esophagitis; J45.909 Unspecified asthma, uncomplicated; M19.90 Unspecified osteoarthritis, unspecified site; F32.A Depression, unspecified; T50.2X5A Adverse effect of carbonic-anhydrase inhibitors, benzothiadiazides and other diuretics, initial encounter; E11.9 Type 2 diabetes mellitus without complications; E03.9 Hypothyroidism, unspecified; Z79.51 Long term (current) use of inhaled steroids; Z79.899 Other long term (current) drug therapy; Z79.82 Long term (current) use of aspirin; Z91.148 Patient's other noncompliance with medication regimen for other reason; Z98.890 Other specified postprocedural states; Z88.8 Allergy status to other drugs, medicaments and biological substances; Z88.2 Allergy status to sulfonamides; Z79.84 Long term (current) use of oral hypoglycemic drugs; Z90.89 Acquired absence of other organs; Z11.52 Encounter for screening for COVID-19
CPT/HCPCS: 36415; 80053; 83735; 85025; J7030; 80048; 82947; 94640; 99222; 99232; 99239; 99284; A9270-GY; J1644; J1815; J3475; J7620-GY

== ENCOUNTER 2023-09-16 17:31 | Emergency (ER) | payer MEDICARE, MEDICAID ==
[2023-09-16 17:36] VITALS: PULSE 74
[2023-09-16 17:38] VITALS: BP 152/43
== END 2023-09-16 18:45 | disposition home or self-care (01) ==
LOC: JD.ED 17:31
DX: S83.92XA Sprain of unspecified site of left knee, initial encounter (principal); M17.12 Unilateral primary osteoarthritis, left knee; E11.9 Type 2 diabetes mellitus without complications; E66.9 Obesity, unspecified; E78.00 Pure hypercholesterolemia, unspecified; I11.0 Hypertensive heart disease with heart failure; I50.9 Heart failure, unspecified; K21.9 Gastro-esophageal reflux disease without esophagitis; E03.9 Hypothyroidism, unspecified; Z86.16 Personal history of COVID-19; Z79.82 Long term (current) use of aspirin; Z79.899 Other long term (current) drug therapy; Z79.890 Hormone replacement therapy; Z68.44 Body mass index [BMI] 60.0-69.9, adult; Z88.2 Allergy status to sulfonamides; Z88.8 Allergy status to other drugs, medicaments and biological substances; W18.49XA Other slipping, tripping and stumbling without falling, initial encounter
CPT/HCPCS: 73564-26-RT; 73564-RT; 99283

== ENCOUNTER 2023-12-17 16:39 | Emergency (ER) | payer MEDICARE, MEDICAID ==
[2023-12-17 16:56] VITALS: BP 152/99; PULSE 79
== END 2023-12-17 20:10 | disposition home or self-care (01) ==
LOC: JD.ED 16:39
DX: B02.9 Zoster without complications (principal); I11.0 Hypertensive heart disease with heart failure; I50.9 Heart failure, unspecified; K21.9 Gastro-esophageal reflux disease without esophagitis; E78.00 Pure hypercholesterolemia, unspecified; E66.9 Obesity, unspecified; E11.9 Type 2 diabetes mellitus without complications; Z88.2 Allergy status to sulfonamides; Z88.8 Allergy status to other drugs, medicaments and biological substances; Z79.82 Long term (current) use of aspirin; Z79.4 Long term (current) use of insulin; Z79.899 Other long term (current) drug therapy; Z86.16 Personal history of COVID-19; Z68.44 Body mass index [BMI] 60.0-69.9, adult
CPT/HCPCS: 99282; 99283

== ENCOUNTER 2024-01-31 13:06 | Emergency (ER) | payer MEDICARE, MEDICAID ==
[2024-01-31 13:45] LABS: BASOPHILS PERCENT AUTO 0.3 % (0.0-1.0); EOSINOPHILS ABSOLUTE AUTO 0.1 K/mm3 (0.0-0.4); EOSINOPHILS PERCENT AUTO 0.7 % (0.0-6.0); HEMATOCRIT 28.1 % (37.0-47.0); HEMOGLOBIN 9.5 gm/dl (12.0-16.0); IMMATURE GRAN ABSOLUTE AUTO 0.08 K/mm3 (0.00-0.05); IMMATURE GRAN PERCENT AUTO 0.7 % (0.0-0.4); LYMPHOCYTES ABSOLUTE AUTO 2.5 K/mm3 (1.0-4.8); LYMPHOCYTES PERCENT AUTO 20.8 % (24.0-44.0); MEAN CORPUSCULAR HEMOGLOBIN 30.9 pg (28.0-32.0); MEAN CORPUSCULAR HGB CONC 33.8 g/dl (32.0-36.0); MEAN CORPUSCULAR VOLUME 91.5 fl (83.0-99.0); MEAN PLATELET VOLUME 10.2 fl (9.4-12.3); MONOCYTES ABSOLUTE AUTO 1.3 K/mm3 (0.0-0.8); MONOCYTES PERCENT AUTO 10.7 % (0.0-8.0); NEUTROPHILS ABSOLUTE AUTO 8.1 K/mm3 (1.8-7.7); NEUTROPHILS PERCENT AUTO 66.8 % (41.0-71.0); PLATELET COUNT,PLT 259 K/mm3 (150-400); RED BLOOD CELL COUNT 3.07 M/mm3 (4.10-5.30); WHITE BLOOD CELL COUNT,WBC 12.14 K/mm3 (3.9-11.3)
[2024-01-31 14:07] LABS: A/G RATIO 1.2 (1-2); ALBUMIN 3.6 g/dl (3.4-5.0); ANION GAP 14.7 (5-15); BILIRUBIN TOTAL 0.3 mg/dL (0.2-1.0); BUN/CREATININE RATIO 25.6 (14-18); CREATININE 1.8 mg/dL (0.55-1.02); EST CRCL DRUG DOSING (CG) 21.49 mL/min; POTASSIUM,K 4.7 mEq/L (3.5-5.1); PROTEIN TOTAL,TP 6.7 g/dl (6.4-8.2)
[2024-01-31] MEDS: Albuterol/Ipratropium 3.0-0.5 MG/3 ML Neb Soln NEB ONE (14:10)
[2024-01-31 15:09] LABS: CORONAVIRUS COVID-19 NAA POSITIVE (NEGATIVE); INFLUENZA A NAA NEGATIVE (NEGATIVE); RESPIRATORY SYNCYTIAL VIR NAA NEGATIVE (NEGATIVE)
[2024-01-31 16:33] VITALS: BP 129/89; PULSE 75
== END 2024-01-31 16:10 | disposition home or self-care (01) ==
LOC: JD.ED 13:06
DX: J18.9 Pneumonia, unspecified organism (principal); I11.0 Hypertensive heart disease with heart failure; I50.9 Heart failure, unspecified; J44.9 Chronic obstructive pulmonary disease, unspecified; K21.9 Gastro-esophageal reflux disease without esophagitis; M19.90 Unspecified osteoarthritis, unspecified site; E11.9 Type 2 diabetes mellitus without complications; E03.9 Hypothyroidism, unspecified; E66.9 Obesity, unspecified; Z68.44 Body mass index [BMI] 60.0-69.9, adult; Z86.16 Personal history of COVID-19; Z79.82 Long term (current) use of aspirin; Z79.4 Long term (current) use of insulin; Z79.899 Other long term (current) drug therapy; Z88.1 Allergy status to other antibiotic agents; Z88.2 Allergy status to sulfonamides
CPT/HCPCS: 0241U; 36415; 71045; 80053; 83880; 84484; 85025; 93005; 94640; 99285; J7620-GY